=== PATIENT | male | born 1950 | race Caucasian/White ===

== ENCOUNTER 2016-12-27 09:00 | Emergency (ER) | payer MEDICARE, OTHER ==
[2016-12-27] MEDS ORDERED: Aspirin 81 MG Tab.Chew PO ONE (09:11)
[2016-12-27] MEDS ORDERED: Sodium Chloride 0.9% 10 ML Syringe FLUSH PRN (09:11)
[2016-12-27] MEDS ORDERED: Ondansetron 4 MG/2 ML SDV IVPUSH ONE (09:11)
[2016-12-27] MEDS ORDERED: Sodium Chloride 0.9% 500 ML IV ONE (09:11)
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
[2016-12-27 09:31] VITALS: BP 161/71
[2016-12-27] MEDS ORDERED: Metoclopramide 10 MG/2 ML SDV IVPUSH ONE (09:46)
[2016-12-27] MEDS ORDERED: Metoclopramide 10 MG/2 ML SDV ONE (09:47)
--- NOTE | 2016-12-27 09:59 | CR ---
Chest: Portable view of the chest was obtained. Comparison: No previous chest x-ray. Heart size and mediastinum are within normal limits. Lungs are clear. Degenerative endplate spurring is noted within the spine. Impression: 1. Incidental findings. Nothing acute is identified on portable chest x-ray. Diagnostic code #2
[2016-12-27] MEDS ORDERED: Sodium Chloride 0.9% 1,000 ML IV SCH (10:00)
[2016-12-27] MEDS ORDERED: Diphtheria,Pertussis(Acell),Tetanus Vaccine 0.5 ML SDV inactive ONE (10:06)
== END 2016-12-27 10:40 ==
LOC: JD.ED 09:00
DX: I49.5 Sick sinus syndrome (principal); Z79.899 Other long term (current) drug therapy; Z88.1 Allergy status to other antibiotic agents; Z23 Encounter for immunization
CPT/HCPCS: 36415; 71010; 80053; 84484; 85025; 85610; 85730; 90471; 93005; 96361; 96374; 99285; J2405; J2765; J7040; J7050; 90715; 96375; A9270-GY